=== PATIENT | female | born 1945 | race Caucasian/White ===

== ENCOUNTER → 2018-03-22 15:42 | Outpatient (CLI) | payer MEDICARE, OTHER, SELFPAY ==
[2018-03-22 16:36] LABS: Add Manual Diff / Slide Review NO; Basophils Percent Auto 0.7 % (0-2); Eosinophils Percent Auto 3.8 % (2-4); Hematocrit 40.2 % (36-46); Hemoglobin 13.9 g/dL (12.0-16.0); Lymphocytes Percent Auto 18.1 % (25-40); Mean Corpuscular HGB Conc 34.5 % (30-36); Mean Corpuscular Hemoglobin 31.7 PG (26-34); Mean Corpuscular Volume 91.9 fL (80-100); Monocytes Percent Auto 9.5 % (3-14); Neutrophils Absolute Auto 4500 /uL (3000-5900); Neutrophils Percent Auto 67.9 % (50-75); Platelet Count 271 X10^3/uL (150-400); Red Blood Cell Count 4.37 X10^6/uL (4.0-5.2); Red Cell Distribution Width 13.3 % (11.6-14.8); White Blood Cell Count 6.6 X10^3/uL (4.5-11.0)
[2018-03-22 17:30] LABS: Appearance Urine UA CLEAR; Bilirubin Urine UA NEGATIVE (NEGATIVE); Color Urine UA YELLOW; Glucose Urine UA NEGATIVE (Normal); Ketones Urine UA NEGATIVE (NEGATIVE); Leukocyte Esterase Urine UA 1+ (NEGATIVE); Nitrite Urine UA Negative (Negative); Occult Blood Urine UA TRACE-LYSED (Negative); Protein Urine UA NEGATIVE (Negative); Specific Gravity Urine UA 1.015 (1.000-1.035); Urobilinogen Urine UA 0.2 E.U./dL (0.2)
[2018-03-22 17:44] LABS: Hemoglobin A1C% w Est Avg Glu 5.2 % (4.0-6.0)
[2018-03-22 17:45] LABS: BUN Creatinine Ratio 31.7 (6-22); Blood Urea Nitrogen 19 mg/dL (7-17); Calcium 9.7 mg/dL (8.4-10.2); Carbon Dioxide 33 mmol/L (22-32); Chloride 101 mmol/L (98-107); Estimated Glomerular Filt Rate > 60.0 mL/min (>60); Glucose 139 mg/dL (80-110); HEMOLYSIS < 15 (0-50); Potassium 3.8 mmol/L (3.4-5.1); Sodium 144 mmol/L (137-145)
[2018-03-22 18:03] LABS: Bacteria Urine Occasional (0-1); Culture Indicated Urine Specimen Cultured; RBC Urine 1-5/HPF (0-5/HPF); Squamous Epithelial Cell Urine 0-1 /HPF; WBC Urine 5-10/HPF (0-5/HPF)
== END ==
PROVIDERS: PCP Physician Assistant Medical; Visit Provider Orthopaedic Surgery
DX: Z01.818 Encounter for other preprocedural examination (principal); Z01.812 Encounter for preprocedural laboratory examination; N39.9 Disorder of urinary system, unspecified; R73.09 Other abnormal glucose; I10 Essential (primary) hypertension
CPT/HCPCS: 36415; 80048; 81001; 83036; 85025; 87086; 93005; 93010

== ENCOUNTER 2018-04-03 08:33 | Day surgery (SDC) | payer MEDICARE, OTHER, SELFPAY ==
[2018-04-03] VITALS (17 sets, daily range): BP systolic 104–184; BP diastolic 50–103; PULSE 59–74; RESP 12–18; TEMP 35.8–36.9; O2SAT 92–100; BMI 29.9
--- NOTE | 2018-04-03 06:15 | DI.RAD.S_ITS ---
PROCEDURE: XR KNEE RT 1TO2V INDICATIONS: prosthesis placement TECHNIQUE: 2 views of the knee acquired. COMPARISON: [facility], MR, MR KNEE RT WO CON, 11/29/2017, 12:02. FINDINGS: Bones: Patient is status post knee joint arthroplasty. Hardware components are in expected positions. Visualized bony structures are intact. Soft tissues: Overlying postoperative changes are noted. IMPRESSION: 1. Expected postsurgical changes status post right knee arthroplasty. Dictated by: Manan Herr M.D. on 04/03/2018 at 13:30 Approved by: Manan Herr M.D. on 04/03/2018 at 13:31
[2018-04-03] MEDS: LACTATED RINGERS 1,000 ML 42 ML IV ×2 (09:45→12:03)
[2018-04-03] MEDS: ACETAMINOPHEN 325 MG TABLET 975 MG PO ×3 (09:45→22:04)
[2018-04-03] MEDS: VANCOMYCIN 1,000 MG/200 ML FROZ.PIGGY 200 MG IV (09:45)
[2018-04-03] MEDS: PREGABALIN 75 MG CAPSULE PO (09:46)
[2018-04-03] MEDS: CELECOXIB 200 MG CAPSULE PO (09:46)
--- NOTE | 2018-04-03 10:20 | PM.PREOP ---
Pre-operative Note Interval Note Pre-op Check: Yes History & Physical Reviewed by Physician and Yes Exam Performed Changes: No
--- NOTE | 2018-04-03 10:23 | P.OP_ITS ---
Operative Date/Time/Diagnoses Date of procedure: 04/03/18 Time of procedure: 10:58 Pre-op diagnosis: right knee oa Post-op diagnosis: same Procedure & Clinicians Procedure: right total knee arthroplasty Same procedure as scheduled: Yes Indications: The patient has had progressively worsening right knee pain with radiographic changes consistent with arthritis. Non-operative management has failed and the patient has requested total knee replacement. The risks, benefits and alternatives to surgery were discussed with the patient prior to proceeding. Risks discussed included, but were not limited to, failure to relieve pain, stiffness, infection, nerve damage, deep venous thrombosis, pulmonary embolism, stroke, coma, heart attack, permanent paralysis and , as well as the potential need for eventual revision of the prosthetic. Surgeon: Elizabeth Guaman Bullet Lubricating Machine Operator: Maggie Cruz Anesthesia Type: General and Spinal Operative Notes Findings: severe right knee OA Closure Type: primary Specimen(s): none sent Implants & Drains: Guaman and Nephew Journey be CS to size 3 femur, size 2 tibia , +10 poly, 32 x 7.5 mm patella Applied: drain(s) Estimated Blood Loss (mL): 200 Blood products transfused: none Tourniquet time (min): 64 Procedure in detail: The patient was seen in the pre-operative area, where the patient identified the right knee as the operative site and this was marked with my initials. The patient received pre-operative antibiotics, and was taken to the operating room and placed on the operative table in the supine position. After satisfactory anesthesia, a tape maker out was performed. The right leg was encircled with a tourniquet about the proximal thigh, and the leg was prepared from the toes to the tourniquet with ChloroPrep in the usual fashion and draped through sterile drapes. The leg was elevated and exsanguinated with Eschmark bandage and the tourniquet inflated to [250] mmHg pressure. The knee was approached through an approximately 18 cm incision centered over the patella and carried into the knee through a medial parapatellar arthrotomy. Portion of the medial and lateral meniscus was resected. Soft tissue was carefully mobilized around the patella the patella was measured with a caliper. Bone was resected from the patella and the patellar height was reconstituted with up an appropriate sized patellar component. A cover was then placed on the patella. A small amount of additional medial and lateral meniscus was resected. The visionare guide fit well to the distal femur. It looked like an appropriate distal femoral cut and the cut was made without difficulty. The rotation was assessed and the appropriate size femoral guide was placed on the distal femur and finishing cuts were made. There was no evidence of notching. The anterior, posterior and chamfer cuts were then made. The posterior osteophytes and soft tissues were then removed. The posterior capsule was injected with part of a mixture of 60 ml 0.25% Marcaine mixed with 20 ml Exparel for post operative pain control. The remainder of this mixture was injected into the capsule and subcutaneous tissues during cement curing. The tibia was prepared and the visionaire guide fit well to the distal tibia. The rotation was assessed. The patient was placed in extension residual medial and lateral meniscus as well as any residual bone was carefully resected. [No] additional tibia was resected. Hemostasis was achieved especially posteriorly. Additional local was injected into the posterior capsule. The extension gap was assessed and additional releases for gap balancing were performed as necessary. It was checked with the gap elementary assistant teacher. The femoral component was trial was placed and the notch was finished. Trial tibial and femoral components were then placed and the knee placed through a range of motion. Range of motion was [ 0-130], with good stability throughout the range. The trials were then removed, and the tibia was finished. The bone was prepared with pulsatile lavage, and dried with a sponge. Cement was applied and the final prosthetics placed. Excess cement was removed during and after cement curing. A brief Betadine soak was performed. After confirming there was no extruded cement posteriorly, the final tibial insert was placed. The knee was copiously irrigated and the tourniquet deflated. Hemostasis was obtained with the cautery. A drain was placed and brought out superolaterally. The capsule was closed with interrupted braided suture. The subcutaneous layer was closed with barbed sutures, and the skin with a running 3-0 V-Lock suture and Surgical glue. An Aquacel Ag dressing was applied and the patient was taken to recovery having tolerated the procedure well. Complications: none Condition: stable Disposition: Acute Care Plan for aftercare: The patient will be maintained on a standard total knee replacement protocol with weight bearing as tolerated. The patient will receive aspirin and sequential compression devices for DVT prophylaxis. The patient will be discharged home when safe for the home environment.
[2018-04-03] MEDS: CEFAZOLIN 2 GM/100 ML FROZ.PIGGY IV ×2 (10:48→19:18)
--- NOTE | 2018-04-03 11:13 | SUR.OPER ---
Supine on padded OR bed. Pillow under head, arms secured on padded armboards <90 degree abduction. Safety belt across torso. Non-operative leg secured with tape over blanket over lower leg. Operative leg secured in DeMayo/Bryan positioner. Foam padded brace at thigh of operative leg.
[2018-04-03] MEDS: BUPIVACAINE 0.25% W/ EPI VIAL 50 ML INJ (11:27)
[2018-04-03] MEDS: BUPIVACAINE LIPOSOME 266 MG/20 ML VIAL INJ (11:27)
[2018-04-03] MEDS: TRANEXAMIC ACID 1,000 MG VIAL 1000 MG IV ×2 (11:27→11:57)
[2018-04-03] MEDS: POVIDONE-IODINE 15 ML, SODIUM CHLORIDE 0.9% 250 ML TOP (11:28)
--- NOTE | 2018-04-03 13:06 | SUR.PHASEI ---
care assumed report recieved.
--- NOTE | 2018-04-03 13:16 | SUR.PHASEI ---
patient awake and alert, pain and nausea free. Transfer pending nurse availablility for report.
[2018-04-03] MEDS: LACTATED RINGERS 1,000 ML 125 ML IV ×2 (14:41→22:32)
--- NOTE | 2018-04-03 14:52 | PC.NURSE ---
accepted pt to room 103 post op rtka- hemovac clamped from [id number], LR @ 125CC/H- PT HAS NOT VOIDED POST OP AND IS FEELING HER RIGHT LOWER LEG AND ABLE TO WIGGLE TOES, SCD'S IN PLACE AND ORIENTED TO ROOM AND BED CONTROLS WELL MAYANK LIGHT - TOLERATE DYOGURT AND WATER THUS FAR- WBAT ORDERED
[2018-04-03] MEDS: OXYCODONE IR 5 MG TABLET PO ×2 (15:42→19:19)
[2018-04-03] MEDS: ONDANSETRON 4 MG/2 ML INJ IV ×2 (19:18→23:44)
[2018-04-03] MEDS: ASPIRIN EC 81 MG TABLET PO (22:05)
[2018-04-03] MEDS: ATORVASTATIN 20 MG TABLET 40 MG PO (22:05)
[2018-04-03] MEDS: DOCUSATE 100 MG CAPSULE PO (22:05)
[2018-04-04] MEDS: OXYCODONE IR 5 MG TABLET PO ×2 (03:03→06:45)
[2018-04-04] MEDS: CEFAZOLIN 2 GM/100 ML FROZ.PIGGY IV (03:19)
[2018-04-04 04:50] VITALS: BP 149/69; PULSE 63; RESP 16; TEMP 36.4; O2SAT 98
[2018-04-04 05:46] LABS: Hemoglobin 12.2 g/dL (12.0-16.0)
[2018-04-04] MEDS: diphenhydrAMINE 25 MG TABLET PO (07:40)
[2018-04-04 07:43] VITALS: BP 157/89; PULSE 64; RESP 18; TEMP 36.9; O2SAT 98
[2018-04-04] MEDS: FLUTICASONE 44 MCG HFA 120 PUFF INH INH (08:40)
[2018-04-04 08:50] VITALS: PULSE 71; RESP 18; O2SAT 98
[2018-04-04] MEDS: ACETAMINOPHEN 325 MG TABLET 975 MG PO (08:57)
[2018-04-04] MEDS: ASPIRIN EC 81 MG TABLET PO (08:58)
[2018-04-04] MEDS: DOCUSATE 100 MG CAPSULE PO (08:58)
[2018-04-04] MEDS: METOPROLOL ER 50 MG TABLET PO (08:58)
--- NOTE | 2018-04-04 09:20 | PT.IIE ---
Current Diagnoses Unilateral primary osteoarthritis, right knee (04/03/18) Surgery Performed Operation Date: 04/03/18 10:45 Actual Procedures p Total Knee Arthroplasty(Right) - Elizabeth Guaman MD Surgical History (Last Updated 03/27/18 @ 12:17 by Marjorie Cueva, RN) History of bilateral cataract extraction (Acute) History of colonoscopy (Acute) History of cystoscopy (Acute) History of laparoscopic-assisted vaginal hysterectomy (Acute) History of tonsillectomy and adenoidectomy (Acute) Medical History (Last Updated 03/27/18 @ 13:16 by Marjorie Cueva, RN) Asthma (Acute) Chronic constipation (Acute) Diverticulosis (Acute) Enterocele (Acute) Hemorrhoids (Acute) History of chest pain (Acute ~05/2016) Hypertension (Acute) Osteoarthritis of right knee (Acute) Osteopenia (Acute) Rectocele (Acute) Uterine leiomyoma (Acute) Physical Therapy Inpatient Evaluation/Re-Eval M1 PT/OT-IP Prior Functional Status Start: 04/04/18 12:56 Freq: NEEDED Status: Active Protocol: Document 04/04/18 09:20 AB (Rec: 04/04/18 13:04 [id number]) Medical Review Prior Functional Status Medical History Reviewed Yes Communication able to make needs known Mobility and Gait pt stated that she is independent with all mobilities and ambulation without AD Social History Household Members spouse Living Arrangements House Number of Floors (Floors) One Floor Number of Stairs To Enter/Railing? one step entry Home Environment Standard Height Toilet Walk in Shower Home Equipment Front Wheel Walker Straight Cane Hand Held Shower Employment Status Retired M2 PT-IP Current Condition Start: 04/04/18 12:56 Freq: NEEDED Status: Active Protocol: Document 04/04/18 09:20 AB (Rec: 04/04/18 13:04 AB [id number]) Physical Therapy Current Condition Current Condition Evaluation Date 04/04/18 Treatment Diagnosis s/p R TKA Onset Date 04/03/18 Weight Bearing Status Weight Bearing Status Weight Bear as Tolerated M3 PT-IP Subjective Start: 04/04/18 12:56 Freq: NEEDED Status: Active Protocol: Document 04/04/18 09:20 AB (Rec: 04/04/18 13:04 [id number]) Subjective Physical Therapy Visit Type Type Initial Evaluation Visit Start Time 09:20 Visit Stop Time 09:55 Total Visit Minutes 35 Number of IMMUNOHEMATOLOGIST Visits 0 Physical Therapy Visit Comments Patient Comments pt agreeable to do PT Therapy Pain Assessment Pain When Pain Assessed At Rest Pain Present Pain Present Pain Reported Location Right Knee Intensity 4 Scale Used Numeric (1 - 10) Pain Management Techniques Apply Cold Re-positioning Timing of Activity with Medications M4 PT-IP Mobility and Gait Start: 04/04/18 12:56 Freq: NEEDED Status: Active Protocol: Document 04/04/18 09:20 AB (Rec: 04/04/18 13:04 [id number]) PT-Bed Mobility Assessment Sit to Supine Sit to Supine Standby Assistance PT-Transfer Assessment Sit to and From Stand Sit to and from Stand Contact Guard Assistance Equipment Transfer Assistive Device Gait Belt Front Wheeled Walker Orthotic/Prosthetic Devices or Brace: No Transfers Transfer Destination Chair Transfer Technique Stand Step Pivot Transfer Ability Level of Assist Contact Guard Assistance 1 Person Assistance Use of Upper Extremities Gait Assessment Gait Gait Assistance Required: Contact Guard Assist Minimum Assistance Distance (Feet) (feet) 40 Able to Maintain Weight Bearing Status Yes During Gait Assistive Devices Assistive Device Gait Belt Front Wheeled Walker Orthotic/Prosthetic Devices or Brace: No Gait Deviations General Gait Pattern Antalgic Decreased Stride Length Decreased Feet Clearance Step-to Gait Factors Limiting Gait Function Factors Limiting Gait Function Decreased Activity Tolerance Decreased Strength Poor Balance Poor Safety Awareness PT-Balance Assessment Sitting Balance and Reactions Static Sitting Balance Ability Good Dynamic Sitting Balance Ability Good Standing Balance and Reactions Static Standing Balance Ability Fair Dynamic Standing Balance Ability Fair Device Used FWW M5 PT-IP Objective Assessments Start: 04/04/18 12:56 Freq: NEEDED Status: Active Protocol: Document 04/04/18 09:20 AB (Rec: 04/04/18 13:04 [id number]) Orientation Orientation/Cognition Level of Alertness Alert Orientation Name Age Birthday Month Date Year Day of Week Place Situation Safety Awareness Understands Safety Issues Gross Range of Motion Lower Extremity ROM Assessment Right Impaired Strength Lower Extremity Strength Assessment Right Impaired Knee 3+/5 Muscle Tone Muscle Tone WNL Yes M6 PT-IP Treatment Start: 04/04/18 12:56 Freq: NEEDED Status: Active Protocol: Document 04/04/18 09:20 AB (Rec: 04/04/18 13:04 [id number]) Physical Therapy Treatment Exercises Exercises Heel Slides Education Education Provided Precautions Weight Bearing Status Post-Op Packet Safety M7 PT-IP Assessment and Plan Start: 04/04/18 12:56 Freq: NEEDED Status: Active Protocol: Document 04/04/18 09:20 AB (Rec: 04/04/18 13:04 AB [id number]) PT Summary Assessment and Plan Potential Rehabilitation Potential Good Status of Condition at Evaluation Stable Summary Impairments Pain ROM Strength Balance Coordination Bed Mobility Transfers Gait Activity Tolerance Assessment Summary pt requiring CGA to min A with ambulation using FWW. pt plans to go home but will have to conduct caregiver training and stair climbing training prior to d/c. pt stated that she is set up for outpt PT. Goals Bed Mobility Goal Independent Transfer Goal Independent Gait Goal Standby Assistance Gait Distance 100 Other Goals up/down 1 step SBA using FWW Days to Meet Goals 2 Frequency of Treatment Frequency Of Treatment Twice a Day Treatment Plan Physical Therapy Treatment Plan Bed Mobility Training Transfer Training Gait Training Therapeutic Exercise Balance Retraining Post Op Education Discharge Planning Hot or Cold Pack Neuromuscular Re-ed Coordination Retraining Manual Therapy Other Recommendations and Next Treatment caregiver training and stair Focus training Recommendations To Nursing Amount of Assist Needed 1 Person Assist Discharge Recommendations PT Discharge Recommendations Home with Assistance Outpatient PT
--- NOTE | 2018-04-04 10:15 | PM.DS.1 ---
History of Present Illness Date Patient Seen: 04/04/18 Time Patient Seen: 07:16 Chief complaint: *OPB* rt total knee arthroplasty [id number] Narrative: Patient states her pain is [id number]. She has been able to get up and use the bedside commode. She denies fever chills. She does have assistance at home. She does wish to be discharged home today if safe to do so. Otherwise without complaints. Discharge Providers Primary care physician: Minal Alcantar PA-C Consults: 04/03/18 13:48 Consult to Discharge Planning Routine Comment: Consult to Physical Therapy Evaluate & Treat Comment: Physician Instructions: postop TKA protocol Consult to Respiratory Therapy Evaluate & Treat Comment: Physician Instructions: Evaluate and treat Discharge provider: Bud Guerrero PA-C Summary Discharge Diagnosis: Status post right total knee arthroplasty. Hospital Course: Patient had progressively worsening right knee pain with changes on x-ray consistent with severe osteoarthritis. Non operative management failed. Patient admitted to the hospital for right total knee arthroplasty. Patient taken to the operating room after consent was obtained. Patient received general and spinal anesthesia. Estimated blood loss was 200 cc. Patient back in her room recovering well and is in stable condition. Status at Discharge Functional status at discharge: uses cane/walker Overall status at discharge: patient is progressing back to baseline Time Spent with Patient Less than 30 minutes Exam Vital Signs (past 8 hours): - 04/04/18 04:50 04/04/18 07:43 04/04/18 08:50 Temperature 97.6 F 98.5 F Pulse Rate 63 64 71 Respiratory Rate 16 18 18 Blood Pressure 149/69 H 157/89 H Pulse Oximetry 98 98 98 Oxygen Delivery Method Room Air Oxygen Flow Rate 0 Narrative Exam Narrative: Pleasant 72-year-old female resting comfortably in bed in no apparent distress. Right knee dressing is clean, dry and intact. Leg is warm and dry. Motor functions intact to the distal right lower extremity. Sensation grossly intact to light touch. Objective Labs Result Diagrams: 04/04/18 05:17 Labs: Laboratory Results - last 24 hr 04/03/18 04/04/18 13:50 05:17 Hgb 12.2 Hct 35.0 L Nasal Screen MRSA (PCR) Negative for mrsa Discharge Plan Discharge Plan Patient Disposition: Home Discharge comment: DC home today after PT Discharge Med Rec/Prescriptions Prescriptions: Continue albuterol sulfate [ProAir HFA] 90 mcg/actuation Hfa Aerosol Inhaler 1 - 2 puff INHALATION Q4H PRN (Reason: Asthma) RF: 0 atorvastatin 40 mg Tablet 40 mg PO DAILY RF: 0 metoprolol succinate 50 mg Tablet Extended Release 24 Hr 50 mg PO DAILY RF: 0 aspirin 81 mg Tablet,Delayed Release (Dr/Ec) 81 mg PO DAILY RF: 0 fluticasone [Flovent HFA] 44 mcg/actuation Hfa Aerosol Inhaler 1 inh INHALATION DAILY RF: 0 Follow up/Referrals: Minal Alcantar, PAAlissonC [Primary Care Provider] - Elizabeth Guaman MD [Physician] - (SNO in 5-7 days) Discharge Orders: Discharge (Order); Ordered 04/04/18 Ordered By: Bud Guerrero Provider Discharge Instructions Diet: Diet as Tolerated Activity: WBAT Cold/Heat Therapy: Ice as needed Other treatments: Patient has prescriptions for home to manage postop pain. She will take Mobic 1 tablet daily. Vistaril as needed muscle spasm and nausea.Oxycodone as needed pain. Aspirin 81 mg b.i.d.. Skin/Wound/Dressing Care Report to your healthcare provider any signs of infection, such as:: chills, fever, night sweats, increased pain and unusual drainage Dressing: Keep clean and dry Visit Report/Discharge Packet Stand Alone Forms: Surgery Discharge Discharge Data Primary Care Provider: Minal Alcantar Attending Provider: Elizabeth Guaman
[2018-04-04] MEDS: IBUPROFEN 600 MG TABLET PO (10:16)
--- NOTE | 2018-04-04 11:19 | CM.DANOTE ---
Patient is a 72 year old female who was admitted Outpt with Bed on 04/03/18 for RTKA. Pt has MCR and REG UNIFORM for insurance and her PCP is Dr. Alcantar. EMR was reviewed. Per Luciana ATKINS, pt is medically stable to d/c home today after further PT. Per PT, recommending safe d/c home today pending CG training with spouse when he arrives bedside. SW met bedside with pt and explained role and pt confirmed that she lives at home with her in [place] and is Independent with ADL's at baseline. Pt drives and has local family and sisters who can provide assist if needed at d/c. Pt denies any hx of HH or SNF and does not anticipate any SW needs at d/c, preference is home with today after CG training with PT. Pt's spouse is her DPOA. Plan: SW to follow for likely pt d/c home today via spouse POV after final CG training with PT. CLYDE Aguirre Discharge Planning/Care Management CM Discharge Assessment Start: 04/04/18 11:15 Freq: Status: Active Protocol: Document 04/04/18 11:15 BF (Rec: 04/04/18 11:19 BF [id number]) Discharge Planning Assessment Assigned Bss Solution Architect CLYDE Bagley DPOA/Assigned Designee Name Spouse Advance Directives? Yes Advance Directives on File Yes History Provided By Patient Significant Other Medical Record Has Patient been admitted in last 30 No days? Prior Living Arrangements House Household Members spouse Type of transporation used prior to Drives own vehicle admit Independent with ADL's Yes Is patient alert and oriented? Yes Caregiver for Another No DME Already Rented / Owned FWW / Walker Comment No anticipated needs Barriers to Discharge No Discharge Plan Home Community Services Physical Therapy Transportation Arrangement Patient's spouse plans to be bedside today and will provide transport home Referrals Initiated None needed Additional Comment Further PT CG training with when he arrives Whiteboard Updated in Patient Room with Yes name and ext. # of Bss Solution Architect Review Status In Process Please Provide Date Initial DC 04/04/18 Assessment Was Performed Next Review Type Continued Stay Review
--- NOTE | 2018-04-04 14:15 | PT.IPTN ---
Current Diagnoses Unilateral primary osteoarthritis, right knee (04/03/18) Surgery Performed Operation Date: 04/03/18 10:45 Actual Procedures p Total Knee Arthroplasty(Right) - Elizabeth Guaman MD Physical Therapy Treatment Note M2 PT-IP Current Condition Start: 04/04/18 12:56 Freq: NEEDED Status: Discharge Protocol: Document 04/04/18 09:20 AB (Rec: 04/04/18 13:04 AB [id number]) Physical Therapy Current Condition Current Condition Evaluation Date 04/04/18 Treatment Diagnosis s/p R TKA Onset Date 04/03/18 Weight Bearing Status Weight Bearing Status Weight Bear as Tolerated M3 PT-IP Subjective Start: 04/04/18 12:56 Freq: NEEDED Status: Discharge Protocol: Document 04/04/18 14:15 AB (Rec: 04/04/18 17:25 AB [email or web address]) Subjective Physical Therapy Visit Type Type Treatment Note Visit Start Time 14:15 Visit Stop Time 14:40 Total Visit Minutes 25 Number of ASSISTANT EDITOR Visits 0 Physical Therapy Visit Comments Patient Comments pt stated that she is ready to go home. spouse present. Therapy Pain Assessment Pain When Pain Assessed At Rest Pain Present Pain Present Pain Reported Location Right Knee Intensity 2 Scale Used Numeric (1 - 10) Pain Management Techniques Re-positioning Timing of Activity with Medications M4 PT-IP Mobility and Gait Start: 04/04/18 12:56 Freq: NEEDED Status: Discharge Protocol: Document 04/04/18 14:15 AB (Rec: 04/04/18 17:25 AB [email or web address]) PT-Bed Mobility Assessment Supine to Sit Supine to Sit Standby Assistance Sit to Supine Sit to Supine Standby Assistance Scooting Scooting to Edge of Bed Standby Assistance Scooting Up and Down in Bed Standby Assistance PT-Transfer Assessment Sit to and From Stand Sit to and from Stand Contact Guard Assistance Equipment Transfer Assistive Device Gait Belt Front Wheeled Walker Orthotic/Prosthetic Devices or Brace: No Transfers Transfer Destination Chair Transfer Technique Stand Step Pivot Transfer Ability Level of Assist Contact Guard Assistance Comments Mobility Comments caregiver training conducted. educated spouse on how to use safety belt and how to assist pt. spouse was able to assist pt safely with transfers. Gait Assessment Gait Gait Assistance Required: Contact Guard Assist Minimum Assistance Distance (Feet) (feet) 50 Able to Maintain Weight Bearing Status Yes During Gait Assistive Devices Assistive Device Gait Belt Front Wheeled Walker Orthotic/Prosthetic Devices or Brace: No Gait Deviations General Gait Pattern Antalgic Decreased Stride Length Decreased Feet Clearance Factors Limiting Gait Function Factors Limiting Gait Function Decreased Activity Tolerance Decreased Strength Limited Range of Motion Pain Poor Balance Poor Safety Awareness Comments Gait Comments spouse was able to assist pt with ambulation safely using FWW. Stair Climbing Assessment Evaluation Level of Assist On Stairs Minimal Assistance Devices Stair Climbing Assistive Devices Front Wheel Walker Technique/Endurance Stair Climbing Direction Ascend and Descend Stair Climbing Technique Step to Step Number of Steps Climbed 1 Query Text: Stair Climbing Set # Repetitions (reps) 2 Comments Stair Climbing Comments simutaled one step entry to home with pt and pt completed with step stool and FWW with PT and pt completed requiring min A and cues. Pt and spouse counter demonstrated and completed safely. M5 PT-IP Objective Assessments Start: 04/04/18 12:56 Freq: NEEDED Status: Discharge Protocol: Document 04/04/18 09:20 AB (Rec: 04/04/18 13:04 AB [id number]) Orientation Orientation/Cognition Level of Alertness Alert Orientation Name Age Birthday Month Date Year Day of Week Place Situation Safety Awareness Understands Safety Issues Gross Range of Motion Lower Extremity ROM Assessment Right Impaired Strength Lower Extremity Strength Assessment Right Impaired Knee 3+/5 Muscle Tone Muscle Tone WNL Yes M6 PT-IP Treatment Start: 04/04/18 12:56 Freq: NEEDED Status: Discharge Protocol: Document 04/04/18 14:15 AB (Rec: 04/04/18 17:25 AB [email or web address]) Physical Therapy Treatment Education Education Provided Precautions Weight Bearing Status Safety M7 PT-IP Assessment and Plan Start: 04/04/18 12:56 Freq: NEEDED Status: Discharge Protocol: Document 04/04/18 14:15 AB (Rec: 04/04/18 17:25 AB [email or web address]) PT Summary Assessment and Plan Potential Rehabilitation Potential Good Summary Impairments Pain ROM Strength Balance Coordination Sensation Tone Cognition Bed Mobility Transfers Gait Activity Tolerance Progress Towards Goals Progressing Toward Goals Safe For Discharge Assessment Summary caregiver training conducted and spouse was able to safely assist pt. pt may go home when medically stable. Goals Bed Mobility Goal Independent Transfer Goal Independent Gait Goal Standby Assistance Gait Distance 100 Other Goals up/down 1 step SBA using FWW Days to Meet Goals 2 Frequency of Treatment Frequency Of Treatment Twice a Day Treatment Plan Physical Therapy Treatment Plan Bed Mobility Training Transfer Training Gait Training Therapeutic Exercise Balance Retraining Post Op Education Discharge Planning Hot or Cold Pack Neuromuscular Re-ed Coordination Retraining Manual Therapy Other Recommendations and Next Treatment caregiver training and stair Focus training Discharge Recommendations PT Discharge Recommendations Home with Assistance Outpatient PT
== END 2018-04-04 14:50 | disposition home or self-care (01) ==
LOC: OR 08:34 → AC 08:36 → ICU 12:21
PROVIDERS: PCP Physician Assistant Medical; Visit Provider Orthopaedic Surgery
PROC: 0SRC0JZ Replacement of Right Knee Joint with Synthetic Substitute, Open Approach (ICD-10-PCS; CPT 27447; principal; 2018-04-03 10:45)
DX: M17.11 Unilateral primary osteoarthritis, right knee (principal); I10 Essential (primary) hypertension; J45.909 Unspecified asthma, uncomplicated
CPT/HCPCS: 27447; 36415; 73560; 85014; 85018; 87797; 94640; 97161; 97530; C1776; C9290; J0690; J2250; J2405; J2704; J3010; J3370